=== PATIENT | male | born 1975 | race Caucasian/White ===

== ENCOUNTER 2020-01-29 01:26 | Inpatient (IN) ==
[2020-01-29] MEDS ORDERED: MIDAZOLAM 2 MG/2 ML VIAL ONE (01:33)
[2020-01-29] MEDS ORDERED: HYDROmorphone 2 MG/1 ML VIAL ONE (01:33)
[2020-01-29] MEDS ORDERED: ATROPINE 1 MG/10 ML SYRINGE ONE (01:43)
[2020-01-29] MEDS ORDERED: BIVALIRUDIN 250 MG VIAL IV ONE ×2 (01:50→02:48)
[2020-01-29] MEDS ORDERED: PHENYLEPHRINE 50 MG/5 ML VIAL ONE (02:00)
[2020-01-29] MEDS ORDERED: TICAGRELOR 90 MG TABLET ONE (02:12)
[2020-01-29] MEDS ORDERED: HEPARIN/NACL 0.9% 2 UNITS/ML 1,000 ML IV ONE (02:16)
[2020-01-29] MEDS ORDERED: LIDOCAINE 1% 20 ML VIAL ONE (02:16)
[2020-01-29] MEDS ORDERED: GLUCAGON 1 MG VIAL IM PRN (02:46)
[2020-01-29] MEDS ORDERED: DEXTROSE 50% 25 GM/50 ML VIAL IV PRN (02:46)
[2020-01-29] MEDS ORDERED: ACETAMINOPHEN 325 MG TABLET PO PRN (02:46)
[2020-01-29] MEDS ORDERED: BIVALIRUDIN 250 MG in SODIUM CHLORIDE 0.9% 50 ML IV SCH (03:00)
[2020-01-29] MEDS: SODIUM CHLORIDE 0.9% 1,000 ML IV SCH ×4 (05:12→23:07)
[2020-01-29 05:43] LABS: Basophils # 0.1 10*3/uL (0.0-0.2); Basophils % 0.3 % (0.0-0.8); Eosinophils % 0.1 % (0.00-10.9); Hematocrit 45.3 VOL% (42.0-52.0); Hemoglobin 15.1 GM/DL (14.0-18.0); Immature Granulocytes % 0.8 %; Immature Granulocytes Absolute 0.15 #; Lymphocytes # 1.5 10*3/uL (1.4-4.0); Lymphocytes % 7.8 % (21.2-54.2); Mean Corpuscular HGB Conc 33.3 GM/DL (32-36); Mean Corpuscular Volume 88.8 FL (87-102); Mean Platelet Volume 10.5 FL (9.6-12.0); Monocytes % 3.2 % (1.7-12.7); Neutrophils % 87.8 % (38.7-73.9); Platelet Count 308 T/CUMM (130-400); White Blood Count 19.6 T/CUMM (4-12)
[2020-01-29 06:14] LABS: CKMB % 7.9 %
[2020-01-29 06:16] LABS: Calcium 8.4 MG/DL (8.5-10.1); Osmolality,Calculated 285.8 MOS/KG (273-304); Risk Ratio 4.44; Troponin I 1.41 NG/ML (0.00-0.045)
[2020-01-29 07:27] LABS: CKMB % 7.8 %
[2020-01-29 07:31] LABS: Troponin I 1.42 NG/ML (0.00-0.045)
[2020-01-29] MEDS ORDERED: PROMETHAZINE 25 MG TABLET PO PRN (08:11)
[2020-01-29] MEDS: INSULIN LISPRO 100 UNIT/ML SUBCUT SCH ×4 (08:32→21:13)
[2020-01-29] MEDS: ASPIRIN EC 81 MG TABLET PO SCH (08:39)
[2020-01-29] MEDS: TICAGRELOR 90 MG TABLET PO SCH ×2 (08:39→21:12)
[2020-01-29] MEDS: PANTOPRAZOLE 40 MG TABLET PO SCH (08:39)
[2020-01-29] MEDS ORDERED: MAGNESIUM SULF RIDER 2 GM in PREMIX 1 EACH IV PRN (09:49)
[2020-01-29] MEDS ORDERED: SIMETHICONE CHEW 125 MG TABLET PO PRN (09:49)
[2020-01-29] MEDS ORDERED: ALUMINUM/MAGNES/SIMETH MAX STR 30 ML UDCUP PO PRN (09:49)
[2020-01-29] MEDS ORDERED: POTASSIUM CHLORIDE 20 MEQ TABLET PO PRN (09:49)
[2020-01-29] MEDS ORDERED: MORPHINE 4 MG/1 ML VIAL IV PRN (09:49)
[2020-01-29] MEDS ORDERED: MAGNESIUM SULF RIDER 4 GM in PREMIX 1 EACH IV PRN (09:49)
[2020-01-29] MEDS ORDERED: hydrALAZINE 20 MG/1 ML VIAL IV PRN (09:49)
[2020-01-29 11:05] LABS: CKMB % 9.9 %
[2020-01-29 11:14] LABS: Troponin I 3.17 NG/ML (0.00-0.045)
[2020-01-29] MEDS ORDERED: INSULIN LISPRO 100 UNIT/ML SUBCUT SCH (11:30)
[2020-01-29] MEDS: ONDANSETRON 4 MG/2 ML VIAL IV PRN ×2 (12:23→18:57)
[2020-01-29 16:21] LABS: CKMB % 10.8 %
[2020-01-29] MEDS: DOCUSATE SODIUM 100 MG CAPSULE PO SCH (21:12)
[2020-01-29] MEDS: ROSUVASTATIN 20 MG TABLET PO SCH (21:12)
[2020-01-29] MEDS: ZALEPLON 5 MG CAPSULE PO PRN (21:12)
[2020-01-29] MEDS: INSULIN GLARGINE 100 UNIT/ML SUBCUT SCH (21:13)
[2020-01-30 04:11] LABS: Basophils # 0.1 10*3/uL (0.0-0.2); Basophils % 0.3 % (0.0-0.8); Hematocrit 42.9 VOL% (42.0-52.0); Hemoglobin 14.5 GM/DL (14.0-18.0); Immature Granulocytes % 0.9 %; Immature Granulocytes Absolute 0.24 #; Lymphocytes # 2.8 10*3/uL (1.4-4.0); Lymphocytes % 10.9 % (21.2-54.2); Mean Corpuscular HGB Conc 33.8 GM/DL (32-36); Mean Corpuscular Volume 88.6 FL (87-102); Mean Platelet Volume 10.5 FL (9.6-12.0); Monocytes % 7.8 % (1.7-12.7); Neutrophils % 80.1 % (38.7-73.9); Platelet Count 234 T/CUMM (130-400); Red Blood Count 4.84 MC/CUMM (3.8-5.5); Red Cell Distribution Width 13.4 % (9.3-17.3); White Blood Count 25.3 T/CUMM (4-12)
[2020-01-30 04:32] LABS: Calcium 8.1 MG/DL (8.5-10.1); Osmolality,Calculated 279.8 MOS/KG (273-304)
[2020-01-30 04:40] LABS: Lymphocytes 6 % (20-55); Segmented Neutrophils 92 % (50-85); Total Cells Counted 100
[2020-01-30 04:41] LABS: Hypochromasia 1+; Microcytosis Slight; Platelet Estimate Normal
[2020-01-30 06:41] LABS: Troponin I 9.09 NG/ML (0.00-0.045)
[2020-01-30] MEDS ORDERED: MAGNESIUM SULF RIDER 2 GM in PREMIX 1 EACH IV ONE (06:59)
[2020-01-30] MEDS: SODIUM CHLORIDE 0.9% 1,000 ML IV SCH (07:56)
[2020-01-30] MEDS: INSULIN LISPRO 100 UNIT/ML SUBCUT SCH ×4 (07:59→21:58)
[2020-01-30 08:40] LABS: Troponin I 38.8 NG/ML (0.00-0.045)
[2020-01-30] MEDS: PANTOPRAZOLE 40 MG TABLET PO SCH (09:21)
[2020-01-30] MEDS: BISACODYL 5 MG TABLET PO SCH (09:21)
[2020-01-30] MEDS: ASPIRIN EC 81 MG TABLET PO SCH (09:22)
[2020-01-30] MEDS: LOSARTAN 25 MG TABLET PO SCH (09:22)
[2020-01-30] MEDS: TICAGRELOR 90 MG TABLET PO SCH ×2 (09:22→21:58)
[2020-01-30] MEDS: ENOXAPARIN 40 MG/0.4 ML SYRINGE SUBCUT SCH (09:22)
[2020-01-30] MEDS: ACETAMINOPHEN 325 MG TABLET PO SCH ×2 (11:49→21:59)
[2020-01-30] MEDS: GABAPENTIN 100 MG CAPSULE PO SCH ×3 (11:49→21:59)
[2020-01-30 11:59] LABS: Apearance,Urine CLEAR (Clear); Bacteria,Urine Occasional /HPF (Few); Bilirubin,Urine Negative (Negative); Blood, Urine Negative (Negative); Glucose,Urine (UA) 50 mg/dL (Negative); Hyaline Casts,Urine 1 /LPF (0-3); Ketones,Urine 20 mg/dL (Negative); Mucus,Urine Few /LPF (Occasional); Nitrite,Urine Negative (Negative); Protein,Urine 30 MG/DL; RBC,Urine 3 /HPF (0-4); Squamous Epithelial Cell,Urine Occasional /HPF (0-10); Urine Color Amber (Yellow); Urine Specific Gravity 1.032 (1.001-1.035); WBC,Urine 2 /HPF (0-6)
[2020-01-30 11:59] LABS: CKMB % 8.5 %
[2020-01-30 12:00] LABS: Troponin I 37.3 NG/ML (0.00-0.045)
[2020-01-30 14:44] LABS: CKMB % 8.2 %
[2020-01-30 14:53] LABS: Troponin I 33.6 NG/ML (0.00-0.045)
[2020-01-30] MEDS: ROSUVASTATIN 20 MG TABLET PO SCH (21:58)
[2020-01-30] MEDS: DOCUSATE SODIUM 100 MG CAPSULE PO SCH (21:58)
[2020-01-30] MEDS: ZALEPLON 5 MG CAPSULE PO PRN (21:59)
[2020-01-30] MEDS: INSULIN GLARGINE 100 UNIT/ML SUBCUT SCH (21:59)
[2020-01-31] MEDS: ONDANSETRON 4 MG/2 ML VIAL IV PRN (02:46)
[2020-01-31 05:19] LABS: Basophils # 0.1 10*3/uL (0.0-0.2); Basophils % 0.3 % (0.0-0.8); Hematocrit 43.3 VOL% (42.0-52.0); Hemoglobin 14.1 GM/DL (14.0-18.0); Immature Granulocytes % 1.4 %; Immature Granulocytes Absolute 0.37 #; Lymphocytes # 2.2 10*3/uL (1.4-4.0); Lymphocytes % 8.5 % (21.2-54.2); Mean Corpuscular HGB Conc 32.6 GM/DL (32-36); Mean Corpuscular Volume 91.5 FL (87-102); Mean Platelet Volume 10.8 FL (9.6-12.0); Monocytes % 9.3 % (1.7-12.7); Neutrophils % 80.5 % (38.7-73.9); Platelet Count 209 T/CUMM (130-400); Red Blood Count 4.73 MC/CUMM (3.8-5.5); Red Cell Distribution Width 13.4 % (9.3-17.3); White Blood Count 25.9 T/CUMM (4-12)
[2020-01-31 05:49] LABS: Lymphocytes 9 % (20-55); Platelet Estimate Adequate; Segmented Neutrophils 86 % (50-85); Total Cells Counted 100
[2020-01-31 05:50] LABS: Hypochromasia 1+; Microcytosis Slight
[2020-01-31 06:07] LABS: CKMB % 5.6 %; Calcium 8.2 MG/DL (8.5-10.1); Osmolality,Calculated 278.2 MOS/KG (273-304)
[2020-01-31 06:09] LABS: Troponin I 26.1 NG/ML (0.00-0.045)
[2020-01-31] MEDS: INSULIN LISPRO 100 UNIT/ML SUBCUT SCH ×4 (10:20→21:38)
[2020-01-31] MEDS: GABAPENTIN 100 MG CAPSULE PO SCH ×3 (10:21→21:35)
[2020-01-31] MEDS: ASPIRIN EC 81 MG TABLET PO SCH (10:21)
[2020-01-31] MEDS: TICAGRELOR 90 MG TABLET PO SCH ×2 (10:21→21:34)
[2020-01-31] MEDS: ENOXAPARIN 40 MG/0.4 ML SYRINGE SUBCUT SCH (10:22)
[2020-01-31] MEDS: LOSARTAN 25 MG TABLET PO SCH (10:22)
[2020-01-31] MEDS: ACETAMINOPHEN 325 MG TABLET PO SCH ×2 (10:22→21:35)
[2020-01-31] MEDS: PANTOPRAZOLE 40 MG TABLET PO SCH (10:22)
[2020-01-31] MEDS: BISACODYL 5 MG TABLET PO SCH (10:22)
[2020-01-31] MEDS: ROSUVASTATIN 20 MG TABLET PO SCH (21:34)
[2020-01-31] MEDS: INSULIN GLARGINE 100 UNIT/ML SUBCUT SCH (21:35)
[2020-01-31] MEDS: DOCUSATE SODIUM 100 MG CAPSULE PO SCH (21:35)
[2020-02-01] MEDS: INSULIN LISPRO 100 UNIT/ML SUBCUT SCH ×4 (07:40→19:58)
[2020-02-01] MEDS: ASPIRIN EC 81 MG TABLET PO SCH (09:33)
[2020-02-01] MEDS: metFORMIN 500 MG TABLET PO SCH ×2 (09:33→17:11)
[2020-02-01] MEDS: LOSARTAN 25 MG TABLET PO SCH (09:34)
[2020-02-01] MEDS: TICAGRELOR 90 MG TABLET PO SCH ×2 (09:34→21:25)
[2020-02-01] MEDS: PANTOPRAZOLE 40 MG TABLET PO SCH (09:34)
[2020-02-01] MEDS: ENOXAPARIN 40 MG/0.4 ML SYRINGE SUBCUT SCH (09:34)
[2020-02-01] MEDS: GABAPENTIN 100 MG CAPSULE PO SCH ×3 (09:34→21:25)
[2020-02-01] MEDS: ACETAMINOPHEN 325 MG TABLET PO SCH ×2 (09:34→21:25)
[2020-02-01] MEDS: BISACODYL 5 MG TABLET PO SCH (09:34)
[2020-02-01] MEDS: DOCUSATE SODIUM 100 MG CAPSULE PO SCH (21:24)
[2020-02-01] MEDS: INSULIN GLARGINE 100 UNIT/ML SUBCUT SCH (21:25)
[2020-02-01] MEDS: ROSUVASTATIN 20 MG TABLET PO SCH (21:25)
[2020-02-02 08:54] LABS: Basophils # 0.1 10*3/uL (0.0-0.2); Basophils % 0.4 % (0.0-0.8); Eosinophils # 0.1 10*3/uL (0.0-0.87); Eosinophils % 0.3 % (0.00-10.9); Hematocrit 42.1 VOL% (42.0-52.0); Immature Granulocytes % 1.3 %; Immature Granulocytes Absolute 0.25 #; Lymphocytes # 1.4 10*3/uL (1.4-4.0); Mean Corpuscular HGB Conc 33.3 GM/DL (32-36); Mean Corpuscular Volume 89.4 FL (87-102); Mean Platelet Volume 11.3 FL (9.6-12.0); Monocytes % 11.1 % (1.7-12.7); Neutrophils % 79.9 % (38.7-73.9); Platelet Count 256 T/CUMM (130-400); Red Blood Count 4.71 MC/CUMM (3.8-5.5); Red Cell Distribution Width 13.5 % (9.3-17.3); White Blood Count 19.5 T/CUMM (4-12)
[2020-02-02 09:12] VITALS: BP 114/59
[2020-02-02] MEDS: metFORMIN 500 MG TABLET PO SCH (09:16)
[2020-02-02] MEDS: ASPIRIN EC 81 MG TABLET PO SCH (09:16)
[2020-02-02] MEDS: GABAPENTIN 100 MG CAPSULE PO SCH (09:17)
[2020-02-02] MEDS: PANTOPRAZOLE 40 MG TABLET PO SCH (09:17)
[2020-02-02] MEDS: TICAGRELOR 90 MG TABLET PO SCH (09:17)
[2020-02-02] MEDS: LOSARTAN 25 MG TABLET PO SCH (09:17)
[2020-02-02] MEDS: BISACODYL 5 MG TABLET PO SCH (09:17)
[2020-02-02] MEDS: INSULIN LISPRO 100 UNIT/ML SUBCUT SCH (09:18)
[2020-02-02] MEDS: ACETAMINOPHEN 325 MG TABLET PO SCH (09:18)
[2020-02-02 09:22] LABS: Calcium 8.2 MG/DL (8.5-10.1); Osmolality,Calculated 275.2 MOS/KG (273-304)
== END 2020-02-02 11:19 | disposition home or self-care (01) | DRG 247 ==
LOC: N.CL 01:26 → N.ICU 02:13 → N.TELES 01-30 12:39
PROVIDERS: ADMIT Internal Medicine Cardiovascular Disease; ATTEND Internal Medicine Cardiovascular Disease
PROC: CLCCHCL (ICD-10-PCS; 2020-01-29 01:45)